=== PATIENT | female | born 1940 | race Caucasian/White ===

== ENCOUNTER → 2020-08-28 | Outpatient (CLI) | payer MEDICARE, OTHER ==
[~2020-08-28] MED LIST: ALLO300 PO; AMLO5 PO; ASPI81CH PO; CEFP200 PO; Humalog100 UNIT/1 SC; LEVO-T100 MC1 PO; LOSA50 PO; Magnesium500 M1 PO; OMEP20ER PO
== END ==
LOC: LAB SHORT 11:06
DX: R35.0 Frequency of micturition (principal)
CPT/HCPCS: 87086